=== PATIENT | female | born 1990 | race African-American/Black ===

== ENCOUNTER 2017-04-11 09:35 | Emergency (ER) | payer OTHER ==
[2017-04-11 11:14] LABS: INR 1.03; PROTHROMBIN TIME 13.6 SECONDS (12.4-14.5)
[2017-04-11 11:15] LABS: FIBRINOGEN 385 MG/DL (221-452); PARTIAL THROMBOPLASTIN TIME 29.2 SECONDS (26.8-37.9)
== END 2017-04-11 13:16 | disposition home or self-care (01) ==
LOC: M ED 09:35
DX: Z04.1 Encounter for examination and observation following transport accident (principal); V48.5XXA Car driver injured in noncollision transport accident in traffic accident, initial encounter; Y92.410 Unspecified street and highway as the place of occurrence of the external cause; Z3A.18 18 weeks gestation of pregnancy; Z79.899 Other long term (current) drug therapy
CPT/HCPCS: 85384

== ENCOUNTER 2017-07-27 10:29 | Inpatient (IN) | payer OTHER ==
[2017-07-27] MEDS: LACTATED RINGER'S 1000 ML IV ×2 (10:40→11:40)
[2017-07-27] MEDS: LR 1,000 ML IV ×2 (12:52→19:03)
[2017-07-27] MEDS: BETAMETHASONE SOLUSPAN 6MG/ML INJ 5ML (J0702) IM (19:03)
[2017-07-27 21:22] LABS: HEMATOCRIT 35.5 % (36.0-47.0); HEMOGLOBIN 11.8 g/dl (12.0-15.5); MEAN CORPUSCULAR HEMOGLOBIN 28.7 pg (27.0-33.0); MEAN CORPUSCULAR HGB CONC 33.2 g/dl (32.0-36.5); MEAN CORPUSCULAR VOLUME 86.4 fl (80.0-96.0); PLATELET COUNT, AUTOMATED 154 10^3/uL (150-450); RED BLOOD COUNT 4.11 10^6/uL (4.00-5.40); RED CELL DISTRIBUTION WIDTH 13.6 % (11.5-14.5); WHITE BLOOD COUNT 6.4 10^3/uL (4.0-10.0)
[2017-07-28] MEDS: LR 1,000 ML IV ×3 (02:50→19:26)
[2017-07-28 10:52] LABS: HEMATOCRIT 35.8 % (36.0-47.0); HEMOGLOBIN 11.9 g/dl (12.0-15.5); MEAN CORPUSCULAR HEMOGLOBIN 28.7 pg (27.0-33.0); MEAN CORPUSCULAR HGB CONC 33.2 g/dl (32.0-36.5); MEAN CORPUSCULAR VOLUME 86.3 fl (80.0-96.0); PLATELET COUNT, AUTOMATED 158 10^3/uL (150-450); RED BLOOD COUNT 4.15 10^6/uL (4.00-5.40); RED CELL DISTRIBUTION WIDTH 13.7 % (11.5-14.5); WHITE BLOOD COUNT 8.7 10^3/uL (4.0-10.0)
[2017-07-28 11:22] LABS: ALBUMIN 2.7 GM/DL (3.2-5.2); ALBUMIN/GLOBULIN RATIO 0.77 (1.00-1.93); ALKALINE PHOSPHATASE 135 U/L (45-117); ALT/SGPT 13 U/L (12-78); ANION GAP 9 MEQ/L (8-16); AST/SGOT 14 U/L (7-37); BILIRUBIN,TOTAL 0.3 MG/DL (0.2-1.0); BLOOD UREA NITROGEN 6 MG/DL (7-18); CALCIUM LEVEL 8.5 MG/DL (8.5-10.1); CARBON DIOXIDE LEVEL 26 MEQ/L (21-32); CHLORIDE LEVEL 107 MEQ/L (98-107); CREATININE FOR GFR 0.56 MG/DL (0.55-1.30); GLOMERULAR FILTRATION RATE > 60.0 (>60); GLUCOSE, FASTING 102 MG/DL (70-100); SODIUM LEVEL 142 MEQ/L (136-145); TOTAL PROTEIN 6.2 GM/DL (6.4-8.2)
[2017-07-28 12:16] LABS: APPEARANCE, URINE CLEAR (CLEAR); BACTERIA, URINE AUTO 1+ (NEGATIVE); BILIRUBIN, URINE AUTO NEGATIVE (NEGATIVE); BLOOD, URINE BLOOD NEGATIVE (NEGATIVE); COLOR, URINE STRAW (YELLOW); GLUCOSE, URINE (UA) AUTO NEGATIVE (NEGATIVE); KETONE, URINE AUTO TRACE mg/dL (NEGATIVE); LEUKOCYTE ESTERASE, URINE AUTO NEGATIVE (NEGATIVE); MUCUS, URINE SMALL (NEGATIVE); NITRITE, URINE AUTO NEGATIVE (NEGATIVE); PROTEIN, URINE AUTO NEGATIVE (NEGATIVE); RBC, URINE AUTO 0 /HPF (0-3); SPECIFIC GRAVITY URINE AUTO 1.006 (1.002-1.035); SQUAMOUS EPITHELIAL CELL UR AU 1 /HPF (0-6); UROBILINOGEN, URINE AUTO 0.2 mg/dL (0.0-2.0); WBC, URINE AUTO 1 /HPF (0-3)
[2017-07-28] MEDS: BETAMETHASONE SOLUSPAN 6MG/ML INJ 5ML (J0702) IM (19:29)
[2017-07-29] MEDS: LR 1,000 ML IV (03:00)
[2017-07-29 13:20] LABS: TOTAL VOLUME, URINE 4350 ML
[2017-07-29 13:27] LABS: TOTAL PROTEIN 24 HOUR URINE 417.6 MG/24HR (50-150); URINE TOTAL PROTEIN 9.6 MG/DL (0-12)
== END 2017-07-29 16:43 | disposition home or self-care (01) | DRG 775 ==
LOC: M LDO 10:29 → M LDI 18:54
PROVIDERS: Obstetrics & Gynecology
DX: O41.03X0 Oligohydramnios, third trimester, not applicable or unspecified (principal); O99.214 Obesity complicating childbirth; O36.8130 Decreased fetal movements, third trimester, not applicable or unspecified; Z3A.34 34 weeks gestation of pregnancy; E66.9 Obesity, unspecified; O32.1XX0 Maternal care for breech presentation, not applicable or unspecified; Z68.33 Body mass index [BMI] 33.0-33.9, adult; Z79.82 Long term (current) use of aspirin

== ENCOUNTER 2017-08-17 16:05 | Inpatient (IN) | payer OTHER ==
[2017-08-17] MEDS: LR 1,000 ML IV ×2 (18:20→18:21)
[2017-08-17 20:31] LABS: ALT/SGPT 14 U/L (12-78); AST/SGOT 15 U/L (7-37); BILIRUBIN,TOTAL 0.4 MG/DL (0.2-1.0); CREATININE FOR GFR 0.67 MG/DL (0.55-1.30); GLOMERULAR FILTRATION RATE > 60.0 (>60); LDH LACTATE DEHYDROGENASE 148 U/L (84-246); URIC ACID 6.5 MG/DL (2.6-6.0)
[2017-08-17] MEDS: valACYclovir HCL 500 MG TAB PO (21:00)
[2017-08-18] MEDS: ACETAMINOPHEN 500 MG TAB PO (02:31)
[2017-08-18] MEDS: OXYTOCIN DRIP 30 UNITS in APPROPRIATE DILUENT 1 EA IV ×3 (06:08→23:16)
[2017-08-18] MEDS ORDERED: TERBUTALINE SULFATE 1 MG/ML VIAL (J3105) As Ordered (06:14)
[2017-08-18] MEDS: LR 1,000 ML IV ×4 (06:32→21:39)
[2017-08-18 08:00] LABS: HEMATOCRIT 35.8 % (36.0-47.0); MEAN CORPUSCULAR HEMOGLOBIN 28.7 pg (27.0-33.0); MEAN CORPUSCULAR HGB CONC 33.5 g/dl (32.0-36.5); MEAN CORPUSCULAR VOLUME 85.6 fl (80.0-96.0); PLATELET COUNT, AUTOMATED 138 10^3/uL (150-450); RED BLOOD COUNT 4.18 10^6/uL (4.00-5.40); RED CELL DISTRIBUTION WIDTH 13.9 % (11.5-14.5); WHITE BLOOD COUNT 5.2 10^3/uL (4.0-10.0)
[2017-08-18] MEDS: valACYclovir HCL 500 MG TAB PO (09:17)
[2017-08-18] MEDS: AZITHROMYCIN INJ 500 MG, VIAL MATE ADAPTER 1 EACH in D5W 250 ML IV (17:15)
[2017-08-18] MEDS: BUPIVACAINE HCL 0.25% 10 ML VIAL SC (17:30)
[2017-08-18] MEDS: ACETAMINOPHEN 650 MG SUPP PR (17:30)
[2017-08-18] MEDS ORDERED: ONDANSETRON 4MG/2ML VIAL (J2405) As Ordered ×2 (17:34→17:39)
[2017-08-18] MEDS ORDERED: MORPHINE PRES-FREE INJ 10 MG/10 ML VIAL (J2274) As Ordered (17:34)
[2017-08-18] MEDS ORDERED: OXYTOCIN INJ 10 UNITS/ML VIAL (J2590) As Ordered ×3 (17:34→18:56)
[2017-08-18] MEDS ORDERED: KETOROLAC 60 MG/2 ML VIAL (J1885) As Ordered (17:39)
[2017-08-18] MEDS: BICITRA 30ML SOLN UDC PO (17:42)
[2017-08-18] MEDS ORDERED: ONDANSETRON 4MG/2ML VIAL (J2405) IV ×2 (18:02→19:30)
[2017-08-18] MEDS ORDERED: NALBUPHINE HCL 10 MG/ML AMP (J2300) IV (18:02)
[2017-08-18] MEDS ORDERED: METOCLOPRAMIDE INJ 10MG/2ML VIAL (J2765) IV (18:02)
[2017-08-18] MEDS ORDERED: NALOXONE INJ 0.4 MG/1 ML VIAL (J2310) IV ×2 (18:02)
[2017-08-18 18:37] LABS: CORD GAS ABE A -3.7; CORD GAS ABE V -1.5; CORD GAS HCO3 A 24.9 MEQ/L; CORD GAS HCO3 V 23.5 MEQ/L; CORD GAS O2 SAT A 19.1 %; CORD GAS O2 SAT V 66.8 %; CORD GAS PCO2 A 59.7 mmHg; CORD GAS PCO2 V 40.4 mmHg; CORD GAS PH A 7.238 UNITS; CORD GAS PH V 7.382 UNITS; CORD GAS PO2 A 11.7 mmHg; CORD GAS PO2 V 27.6 mmHg; CORD GAS SBC A 19.6 MEQ/L; CORD GAS SBC V 22.5 MEQ/L; CORD GAS TCO2 A 26.7 MEQ/L; CORD GAS TCO2 V 24.7 MEQ/L
[2017-08-18] MEDS ORDERED: ANUSOL HC CREAM 30GM TOP (19:30)
[2017-08-18] MEDS ORDERED: MEPERIDINE INJ 25 MG/ML VIAL (J2175) IV (19:30)
[2017-08-18] MEDS ORDERED: PERCOCET 5MG/325MG TAB PO ×2 (19:30)
[2017-08-18] MEDS ORDERED: MOM 30ML SUSPENSION UDC PO (19:30)
[2017-08-18] MEDS ORDERED: fentaNYL 100 MCG/2 ML INJECTION (J3010) IV (19:30)
[2017-08-18] MEDS ORDERED: RHOGAM 300 MCG (1500 IU) INJ (J2790) IM (19:30)
[2017-08-18] MEDS ORDERED: DOCUSATE SODIUM 100 MG CAP PO (19:30)
[2017-08-18] MEDS ORDERED: METHYLERGONOVINE MALEATE 0.2 MG TAB PO (19:30)
[2017-08-18] MEDS ORDERED: MEASLES,MUMPS,RUBELLA VACCINE INJ (MMR-II) (90707) SC (19:30)
[2017-08-19] MEDS: KETOROLAC 30 MG/ML VIAL (J1885) IV ×3 (00:18→11:07)
[2017-08-19] MEDS: LR 1,000 ML IV ×3 (00:18→16:23)
[2017-08-19] MEDS: OXYTOCIN DRIP 30 UNITS in APPROPRIATE DILUENT 1 EA IV ×6 (03:16→23:16)
[2017-08-19 06:55] LABS: HEMATOCRIT 32.7 % (36.0-47.0); HEMOGLOBIN 11.1 g/dl (12.0-15.5); MEAN CORPUSCULAR HEMOGLOBIN 28.9 pg (27.0-33.0); MEAN CORPUSCULAR HGB CONC 33.9 g/dl (32.0-36.5); MEAN CORPUSCULAR VOLUME 85.2 fl (80.0-96.0); PLATELET COUNT, AUTOMATED 130 10^3/uL (150-450); RED BLOOD COUNT 3.84 10^6/uL (4.00-5.40); RED CELL DISTRIBUTION WIDTH 13.7 % (11.5-14.5); WHITE BLOOD COUNT 6.6 10^3/uL (4.0-10.0)
[2017-08-19] MEDS: PRENATAL VITAMINS CHEWABLE TABLET PO (08:03)
[2017-08-19] MEDS: PERCOCET 5MG/325MG TAB PO (16:50)
[2017-08-19] MEDS: IBUPROFEN 800 MG TAB PO (22:35)
[2017-08-20] MEDS: OXYTOCIN DRIP 30 UNITS in APPROPRIATE DILUENT 1 EA IV (03:16)
[2017-08-20] MEDS: IBUPROFEN 800 MG TAB PO ×2 (03:43→11:36)
[2017-08-20] MEDS: PRENATAL VITAMINS CHEWABLE TABLET PO (08:53)
[2017-08-20] MEDS: PERCOCET 5MG/325MG TAB PO (08:53)
== END 2017-08-20 12:10 | disposition home or self-care (01) | DRG 765 ==
LOC: M LDO 16:05 → M LDI 08-18 07:24 → M OBS 08-18 20:54
PROC: 10D00Z1 Extraction of Products of Conception, Low, Open Approach (ICD-10-PCS; principal; 2017-08-18 17:51)
PROC: 3E033VJ Introduction of Other Hormone into Peripheral Vein, Percutaneous Approach (ICD-10-PCS; 2017-08-18 17:51)
DX: O41.03X0 Oligohydramnios, third trimester, not applicable or unspecified (principal); O98.52 Other viral diseases complicating childbirth; Z37.0 Single live birth; Z3A.37 37 weeks gestation of pregnancy; Z79.82 Long term (current) use of aspirin; B00.9 Herpesviral infection, unspecified; O76 Abnormality in fetal heart rate and rhythm complicating labor and delivery; O62.0 Primary inadequate contractions; O61.0 Failed medical induction of labor